=== PATIENT | female | born 1950 | race Caucasian/White ===

== ENCOUNTER 2024-12-02 12:59 | Inpatient (IN) | payer MEDICARE ==
[~2024-12-02] VITALS: Ht 162.6 cm; Wt 64.0 kg
[2024-12-02 13:49] LABS: BASOPHILS % (AUTO) 0.3 % (0.0-2.0); EOSINOPHILS % (AUTO) 0.1 % (0.0-6.0); HEMATOCRIT 45 % (33-45); HEMOGLOBIN 14.6 g/dL (11.5-14.8); LYMPHOCYTES # (AUTO) 4.9 K/uL (0.8-4.8); LYMPHOCYTES % (AUTO) 35.7 % (20.0-44.0); MEAN CORPUSCULAR HEMOGLOBIN 29 PG (26.0-33.0); MEAN CORPUSCULAR HGB CONC 32 g/dl (31.0-36.0); MEAN CORPUSCULAR VOLUME 90 fL (82-100); MONOCYTES # (AUTO) 1.2 K/uL (0.1-1.30); MONOCYTES % (AUTO) 8.7 % (2.0-12.0); NEUTROPHILS # (AUTO) 7.6 K/uL (1.8-8.9); NEUTROPHILS % (AUTO) 55.2 % (43.0-81.0); PLATELET COUNT (AUTO) 482 K/uL (150-450); RED BLOOD CELL COUNT(AUTO) 5.06 MIL/uL (4.0-5.2); RED CELL DISTRIBUTION WIDTH 14.4 % (11.5-15.0); WHITE BLOOD COUNT (AUTO) 13.7 K/uL (4.3-11.0)
[2024-12-02 14:24] LABS: CALCIUM, SERUM 9.7 mg/dL (8.5-10.1); CARBON DIOXIDE 28 mmol/L (21-32); CHLORIDE 102 mmol/L (98-107); CREATININE 0.9 mg/dL (0.6-1.3); GLUCOSE 135 mg/dL (74-106); SODIUM SERUM 139 mmol/L (136-145); UREA NITROGEN, BLOOD 21 mg/dL (7-18)
[2024-12-02 14:36] LABS: APPEARANCE,URINE SLIGHTLY CLOUDY (CLEAR); BILIRUBIN,URINE 1+ (NEGATIVE); BLOOD, URINE 1+ Ery/uL (NEGATIVE); COLOR,URINE DARK YELLOW (YELLOW); KETONES,URINE 1+ mg/dL (NEGATIVE); LEUKOCYTE ESTERASE ,URINE NEGATIVE (NEGATIVE); NITRITE, URINE NEGATIVE (NEGATIVE); PH,URINE 5.5 (5.0-8.0); PROTEIN,URINE 2+ mg/dl (NEGATIVE); UGLUCOSE NEGATIVE (NEGATIVE); UROBILINOGEN,URINE 0.2 EU/dL (0.2)
[2024-12-02 14:51] LABS: ADD URINE CULTURE YES; BACTERIA,URINE 1+ /HPF (None Seen)
[2024-12-02 14:58] LABS: SALICYLATE 1.6 mg/dL (2.8-20.0)
[2024-12-02 14:59] LABS: ACETAMINOPHEN <10 ug/ml (10-30); ALCOHOL, BLOOD < 3 mg/dL (0-10)
[2024-12-02 15:06] LABS: AMPHETAMINE, URINE NEGATIVE (NEGATIVE); BARBITURATE, URINE NEGATIVE (NEGATIVE); BENZODIAZEPINE, URINE NEGATIVE (NEGATIVE); CANNABINOID, URINE NEGATIVE (NEGATIVE); COCCAINE, URINE NEGATIVE (NEGATIVE); OPIATE, URINE NEGATIVE (NEGATIVE); PHENCYCLIDINE SCREEN,URINE NEGATIVE (NEGATIVE)
[2024-12-02] MEDS: IV NS 0.9% 1,000 ML BAG IV ONE (15:10)
[2024-12-02] MEDS ORDERED: MAGN400T30 PO (15:22)
[2024-12-02] MEDS ORDERED: AMLO5TAB4 PO (15:22)
[2024-12-02] MEDS ORDERED: DOCU100T2 PO (15:22)
[2024-12-02] MEDS ORDERED: ANAS1TAB50 PO (15:22)
[2024-12-02] MEDS ORDERED: MEMA10TA PO (15:22)
[2024-12-02] MEDS ORDERED: ACET-868 PO ×2 (15:22→15:23)
[2024-12-02] MEDS ORDERED: NYST1POW4 TP (15:22)
[2024-12-02] MEDS ORDERED: COLC0.6T67 PO (15:22)
[2024-12-02] MEDS ORDERED: HYDR-4076 PO (15:23)
[2024-12-02] MEDS ORDERED: MELA1TAB47 PO (15:23)
[2024-12-02] MEDS ORDERED: APIX5TAB PO (15:23)
[2024-12-02] MEDS ORDERED: CA C1TAB98 PO (15:23)
[2024-12-02] MEDS ORDERED: MAGN400O6 PO (15:23)
[2024-12-02 16:39] LABS: LACTIC ACID 2.5 mmol/L (0.4-2.0)
[2024-12-02] MEDS: MAGNESIUM OXIDE 400 MG TABLET PO SCH (18:00)
[2024-12-02] MEDS ORDERED: MAGNESIUM HYDROXIDE 30 ML UDC PO PRN ×2 (18:00)
[2024-12-02] MEDS ORDERED: ONDANSETRON HCL/PF 4 MG/2 ML VIAL IVP PRN (18:00)
[2024-12-02] MEDS ORDERED: CALCIUM MAGNESIUM XX SCH (18:00)
[2024-12-02] MEDS ORDERED: ACETAMINOPHEN 325 MG TABLET PO PRN ×2 (18:00)
[2024-12-02] MEDS ORDERED: hydrALAZINE HCL 25 MG TABLET PO PRN (18:00)
[2024-12-02] MEDS ORDERED: Z GUARD REMEDY 4 OZ OINT TP PRN (18:00)
[2024-12-02] MEDS ORDERED: MAG HYDROX/AL HYDROX/SIMETH 30 ML UDC PO PRN (18:00)
[2024-12-02 19:46] LABS: BILIRUBIN,DIRECT 0.1 mg/dL (0.0-0.2); BILIRUBIN,TOTAL 0.3 mg/dL (0.2-1.0)
[2024-12-02] MEDS: CEFTRIAXONE 1 G in IV D5W 50 ML IV SCH (21:30)
[2024-12-02] MEDS: IV D5/ 0.9% NACL 1,000 ML IV PRN (21:30)
[2024-12-02 23:21] VITALS: BP 140/79; TEMP 98.6; O2SAT 98
[2024-12-03 06:28] VITALS: BP 140/79; TEMP 99.1; O2SAT 98
[2024-12-03] MEDS: PANTOPRAZOLE 40 MG TABLET.DR PO SCH (08:00)
[2024-12-03 08:21] LABS: BASOPHILS % (AUTO) 0.1 % (0.0-2.0); EOSINOPHILS % (AUTO) 0.3 % (0.0-6.0); HEMATOCRIT 41 % (33-45); HEMOGLOBIN 12.9 g/dL (11.5-14.8); LYMPHOCYTES # (AUTO) 3.2 K/uL (0.8-4.8); LYMPHOCYTES % (AUTO) 31.4 % (20.0-44.0); MEAN CORPUSCULAR HEMOGLOBIN 29 PG (26.0-33.0); MEAN CORPUSCULAR HGB CONC 32 g/dl (31.0-36.0); MEAN CORPUSCULAR VOLUME 91 fL (82-100); MONOCYTES # (AUTO) 0.8 K/uL (0.1-1.30); MONOCYTES % (AUTO) 7.8 % (2.0-12.0); NEUTROPHILS # (AUTO) 6.1 K/uL (1.8-8.9); NEUTROPHILS % (AUTO) 60.4 % (43.0-81.0); PLATELET COUNT (AUTO) 338 K/uL (150-450); RED BLOOD CELL COUNT(AUTO) 4.47 MIL/uL (4.0-5.2); RED CELL DISTRIBUTION WIDTH 13.8 % (11.5-15.0); WHITE BLOOD COUNT (AUTO) 10.1 K/uL (4.3-11.0)
[2024-12-03 08:23] LABS: CALCIUM, SERUM 9.3 mg/dL (8.5-10.1); CREATININE 0.5 mg/dL (0.6-1.3); MAGNESIUM 2.2 mg/dL (1.8-2.4); POTASSIUM 3.6 mmol/L (3.5-5.1)
[2024-12-03] MEDS: DOCUSATE SODIUM LIQ 100 MG/10 ML UDC PO SCH (08:40)
[2024-12-03] MEDS: COLCHICINE 0.6 MG TABLET PO SCH (08:40)
[2024-12-03] MEDS: MEMANTINE HCL 5 MG TABLET PO SCH (08:40)
[2024-12-03] MEDS: ANASTROZOLE 1 MG TABLET PO SCH (08:40)
[2024-12-03] MEDS: ACETAMINOPHEN 325 MG TABLET PO SCH (08:40)
[2024-12-03] MEDS: APIXABAN 5 MG TABLET PO SCH (08:42)
[2024-12-03] MEDS: AMLODIPINE BESYLATE 5 MG TABLET PO SCH (08:44)
[2024-12-03 14:00] VITALS: BP 132/65; TEMP 98.7; O2SAT 98
[2024-12-03] MEDS: K PHOS NEUTRAL 250 MG TABLET PO ONE (16:35)
[2024-12-03 22:00] VITALS: BP 145/73; TEMP 99; O2SAT 97
[2024-12-04 04:00] VITALS: BP 131/77; TEMP 98.2; O2SAT 98
[2024-12-04 06:00] VITALS: BP 131/77; TEMP 98.2; O2SAT 98
[2024-12-04 08:31] LABS: CALCIUM, SERUM 8.7 mg/dL (8.5-10.1); CREATININE 0.4 mg/dL (0.6-1.3); MAGNESIUM 2.1 mg/dL (1.8-2.4); POTASSIUM 4.8 mmol/L (3.5-5.1)
[2024-12-04 14:00] VITALS: BP 134/78; TEMP 97.8; O2SAT 96
[2024-12-04 16:00] VITALS: BP 119/64; TEMP 97.9; O2SAT 100
[2024-12-04] MEDS: ENOXAPARIN SODIUM 60 MG/0.6 ML DISP.SYRIN SQ SCH (20:16)
[2024-12-04 20:57] VITALS: BP 125/64; TEMP 98.4; O2SAT 98
[2024-12-05 01:53] VITALS: BP 125/64; TEMP 98.4; O2SAT 98
[2024-12-05 06:21] VITALS: BP 154/68; TEMP 97.9; O2SAT 98
[2024-12-05 09:06] VITALS: BP 162/71; TEMP 98; O2SAT 98
[2024-12-05 14:00] VITALS: BP 162/71; TEMP 98; O2SAT 98
[2024-12-05 17:15] LABS: BASOPHILS % (AUTO) 0.1 % (0.0-2.0); EOSINOPHILS % (AUTO) 0.3 % (0.0-6.0); HEMATOCRIT 35 % (33-45); HEMOGLOBIN 11.7 g/dL (11.5-14.8); LYMPHOCYTES # (AUTO) 4.2 K/uL (0.8-4.8); LYMPHOCYTES % (AUTO) 38.4 % (20.0-44.0); MEAN CORPUSCULAR HEMOGLOBIN 29 PG (26.0-33.0); MEAN CORPUSCULAR HGB CONC 33 g/dl (31.0-36.0); MEAN CORPUSCULAR VOLUME 88 fL (82-100); MONOCYTES # (AUTO) 0.8 K/uL (0.1-1.30); MONOCYTES % (AUTO) 7.3 % (2.0-12.0); NEUTROPHILS # (AUTO) 5.9 K/uL (1.8-8.9); NEUTROPHILS % (AUTO) 53.9 % (43.0-81.0); PLATELET COUNT (AUTO) 305 K/uL (150-450); RED BLOOD CELL COUNT(AUTO) 3.99 MIL/uL (4.0-5.2); RED CELL DISTRIBUTION WIDTH 13.5 % (11.5-15.0); WHITE BLOOD COUNT (AUTO) 10.9 K/uL (4.3-11.0)
[2024-12-05 17:18] LABS: CALCIUM, SERUM 8.6 mg/dL (8.5-10.1); CREATININE 0.5 mg/dL (0.6-1.3); MAGNESIUM 1.8 mg/dL (1.8-2.4); PHOSPHORUS 2.5 mg/dL (2.5-4.9); POTASSIUM 3.8 mmol/L (3.5-5.1)
[2024-12-05 22:00] VITALS: BP 133/65; TEMP 98.6; O2SAT 97
[2024-12-06 06:00] VITALS: BP 151/75; TEMP 98.8; O2SAT 98
[2024-12-06 08:00] LABS: BASOPHILS % (AUTO) 0.2 % (0.0-2.0); EOSINOPHILS # (AUTO) 0.1 K/uL (0.0-0.7); EOSINOPHILS % (AUTO) 0.5 % (0.0-6.0); HEMATOCRIT 37 % (33-45); LYMPHOCYTES # (AUTO) 5.1 K/uL (0.8-4.8); LYMPHOCYTES % (AUTO) 47.6 % (20.0-44.0); MEAN CORPUSCULAR HEMOGLOBIN 29 PG (26.0-33.0); MEAN CORPUSCULAR HGB CONC 32 g/dl (31.0-36.0); MEAN CORPUSCULAR VOLUME 90 fL (82-100); MONOCYTES # (AUTO) 0.6 K/uL (0.1-1.30); MONOCYTES % (AUTO) 5.8 % (2.0-12.0); NEUTROPHILS % (AUTO) 45.9 % (43.0-81.0); PLATELET COUNT (AUTO) 327 K/uL (150-450); RED BLOOD CELL COUNT(AUTO) 4.14 MIL/uL (4.0-5.2); RED CELL DISTRIBUTION WIDTH 13.8 % (11.5-15.0); WHITE BLOOD COUNT (AUTO) 10.8 K/uL (4.3-11.0)
[2024-12-06 08:29] LABS: CALCIUM, SERUM 8.7 mg/dL (8.5-10.1); CREATININE 0.5 mg/dL (0.6-1.3); PHOSPHORUS 2.6 mg/dL (2.5-4.9); POTASSIUM 3.5 mmol/L (3.5-5.1)
[2024-12-06 14:00] VITALS: BP 144/71; TEMP 98.2; O2SAT 98
[2024-12-06 20:00] VITALS: BP 128/70; TEMP 99.5; O2SAT 95
[2024-12-07 04:00] VITALS: BP_SYST 115; BP_SYST 130; BP_DIAS 69; BP_DIAS 83; TEMP 98.2; TEMP 98.9; O2SAT 100; O2SAT 95
[2024-12-07 08:00] VITALS: BP 129/79; TEMP 98.4; O2SAT 98
[2024-12-07 08:15] LABS: BASOPHILS % (AUTO) 0.3 % (0.0-2.0); EOSINOPHILS # (AUTO) 0.1 K/uL (0.0-0.7); EOSINOPHILS % (AUTO) 0.7 % (0.0-6.0); HEMATOCRIT 34 % (33-45); HEMOGLOBIN 11.2 g/dL (11.5-14.8); LYMPHOCYTES # (AUTO) 4.9 K/uL (0.8-4.8); LYMPHOCYTES % (AUTO) 53.4 % (20.0-44.0); MEAN CORPUSCULAR HEMOGLOBIN 29 PG (26.0-33.0); MEAN CORPUSCULAR HGB CONC 33 g/dl (31.0-36.0); MEAN CORPUSCULAR VOLUME 88 fL (82-100); MONOCYTES # (AUTO) 0.5 K/uL (0.1-1.30); MONOCYTES % (AUTO) 5.5 % (2.0-12.0); NEUTROPHILS # (AUTO) 3.6 K/uL (1.8-8.9); NEUTROPHILS % (AUTO) 40.1 % (43.0-81.0); PLATELET COUNT (AUTO) 330 K/uL (150-450); RED BLOOD CELL COUNT(AUTO) 3.83 MIL/uL (4.0-5.2); RED CELL DISTRIBUTION WIDTH 13.7 % (11.5-15.0); WHITE BLOOD COUNT (AUTO) 9.1 K/uL (4.3-11.0)
[2024-12-07 09:03] LABS: CALCIUM, SERUM 8.5 mg/dL (8.5-10.1); CREATININE 0.3 mg/dL (0.6-1.3); MAGNESIUM 1.9 mg/dL (1.8-2.4); PHOSPHORUS 3.1 mg/dL (2.5-4.9); POTASSIUM 3.4 mmol/L (3.5-5.1)
[2024-12-07 16:00] VITALS: BP 122/73; TEMP 98.6; O2SAT 99
[2024-12-07] MEDS: VANCOMYCIN HCL 1.25 GM in IV D5W 250 ML IV ONE (16:55)
[2024-12-07 20:00] VITALS: BP 142/66; TEMP 97.5; O2SAT 99
[2024-12-07] MEDS: VANCOMYCIN 750 MG in IV D5W 250 ML IV SCH (23:47)
[2024-12-08 04:00] VITALS: BP 155/68; TEMP 98.2
[2024-12-08 08:00] VITALS: BP 154/82; TEMP 97.3; O2SAT 99
[2024-12-08 09:01] LABS: CALCIUM, SERUM 8.7 mg/dL (8.5-10.1); CREATININE 0.4 mg/dL (0.6-1.3); POTASSIUM 3.5 mmol/L (3.5-5.1)
[2024-12-08 16:00] VITALS: BP 127/82; TEMP 97.3; O2SAT 98
[2024-12-08 20:00] VITALS: BP 121/63; TEMP 97.9; O2SAT 99
[2024-12-09 04:00] VITALS: BP 138/98; TEMP 97.5; O2SAT 97
[2024-12-09 07:46] LABS: CREATININE 0.4 mg/dL (0.6-1.3); POTASSIUM 3.5 mmol/L (3.5-5.1)
[2024-12-09 08:24] VITALS: BP 155/68; TEMP 98.2
[2024-12-09 16:30] VITALS: BP 121/63; TEMP 97.9; O2SAT 99
[2024-12-09 20:00] VITALS: BP 101/83; TEMP 97.9; O2SAT 99
[2024-12-09 22:51] LABS: APPEARANCE,URINE CLEAR (CLEAR); BILIRUBIN,URINE NEGATIVE (NEGATIVE); BLOOD, URINE NEGATIVE Ery/uL (NEGATIVE); COLOR,URINE YELLOW (YELLOW); KETONES,URINE NEGATIVE (NEGATIVE); LEUKOCYTE ESTERASE ,URINE NEGATIVE (NEGATIVE); NITRITE, URINE NEGATIVE (NEGATIVE); PROTEIN,URINE NEGATIVE (NEGATIVE); UGLUCOSE NEGATIVE (NEGATIVE); UROBILINOGEN,URINE 0.2 EU/dL (0.2)
[2024-12-10 04:00] VITALS: BP 137/99; TEMP 98.2; O2SAT 95
[2024-12-10 08:00] VITALS: BP 121/91; TEMP 98.8; O2SAT 96
[2024-12-10] MEDS: HYDROCODONE/APAP 5/325MG TABLET PO PRN (08:30)
[2024-12-10 09:36] LABS: CALCIUM, SERUM 8.8 mg/dL (8.5-10.1); CREATININE 0.4 mg/dL (0.6-1.3); POTASSIUM 3.6 mmol/L (3.5-5.1)
[2024-12-10 16:00] VITALS: BP 120/85; TEMP 98.6; O2SAT 97
[2024-12-10 20:00] VITALS: BP 137/91; TEMP 99.1; O2SAT 93
[2024-12-11 04:00] VITALS: BP 145/84; TEMP 98.8; O2SAT 88
[2024-12-11 08:00] VITALS: BP 144/54; TEMP 98.1; O2SAT 96
[2024-12-11 09:03] LABS: CALCIUM, SERUM 9.2 mg/dL (8.5-10.1); CREATININE 0.6 mg/dL (0.6-1.3); POTASSIUM 3.7 mmol/L (3.5-5.1)
[2024-12-11 16:00] VITALS: BP 109/60; TEMP 97.9; O2SAT 97
[2024-12-11 20:14] VITALS: BP 125/74; TEMP 97.9; O2SAT 97
[2024-12-12 04:40] VITALS: BP 145/68; TEMP 98.2; O2SAT 98
[2024-12-12 08:00] VITALS: BP 139/47; TEMP 98; O2SAT 96
[2024-12-12 09:12] LABS: CALCIUM, SERUM 8.9 mg/dL (8.5-10.1); CREATININE 0.7 mg/dL (0.6-1.3); POTASSIUM 3.4 mmol/L (3.5-5.1)
[2024-12-12 16:00] VITALS: BP 126/66; TEMP 97.7; O2SAT 100
[2024-12-12] MEDS ORDERED: APIX5TAB PO (16:42)
[2024-12-12 20:00] VITALS: BP 107/88; TEMP 98.2; O2SAT 99
[2024-12-13 04:00] VITALS: BP 109/66; TEMP 98.8; O2SAT 99
[2024-12-13 08:00] VITALS: BP 120/86; TEMP 98.8; O2SAT 99
[2024-12-13 08:58] VITALS: BP 120/80
[2024-12-13 09:14] LABS: CALCIUM, SERUM 8.5 mg/dL (8.5-10.1); CREATININE 0.6 mg/dL (0.6-1.3); POTASSIUM 3.8 mmol/L (3.5-5.1)
[2024-12-13 09:57] VITALS: TEMP 98.8
== END 2024-12-13 14:40 | disposition home health service (06) | DRG 689 ==
LOC: ER 13:03 → TELE1 18:25 → MEDSG1 18:36
PROVIDERS: ADMIT Nurse Practitioner Acute Care; ATTEND Student in an Organized Health Care Education/Training Program
DX: N39.0 Urinary tract infection, site not specified (principal); G92.8 Other toxic encephalopathy; U07.1 COVID-19; D68.69 Other thrombophilia; I82.812 Embolism and thrombosis of superficial veins of left lower extremity; E87.20 Acidosis, unspecified; R62.7 Adult failure to thrive; E86.0 Dehydration; I10 Essential (primary) hypertension; Z79.01 Long term (current) use of anticoagulants; Z88.0 Allergy status to penicillin; Z86.718 Personal history of other venous thrombosis and embolism; Z74.09 Other reduced mobility; Z85.3 Personal history of malignant neoplasm of breast; Z79.899 Other long term (current) drug therapy; M10.9 Gout, unspecified; G30.9 Alzheimer's disease, unspecified; F02.80 Dementia in other diseases classified elsewhere, unspecified severity, without behavioral disturbance, psychotic disturbance, mood disturbance, and anxiety; E11.9 Type 2 diabetes mellitus without complications; B95.62 Methicillin resistant Staphylococcus aureus infection as the cause of diseases classified elsewhere
CPT/HCPCS: 36415; 70450-TC; 71045-TC; 80048-TC; 80061-TC; 80202-TC; 81001; 82247-TC; 82248-TC; 83605-TC; 83735-TC; 84100-TC; 84443-TC; 84484-TC; 85025-TC; 86140-TC; 87040-TC; 87086-TC; 92526; 92611-TC; 93970-TC; 97110-TC; 97112-TC; 97530-TC; A4223; A6253; G0378; G0480; J0696; J1650; J3371; J7042; J7060